=== PATIENT | female | born 1975 | race Caucasian/White ===

== ENCOUNTER 2023-07-12 10:02 | Outpatient (CLI) | payer OTHER, SELFPAY | END 2023-07-12 10:03 | disposition home or self-care (01) | PROVIDERS: PCP Family Medicine; Visit Provider Obstetrics & Gynecology | DX: E03.9 Hypothyroidism, unspecified (principal); Z13.220 Encounter for screening for lipoid disorders | CPT/HCPCS: 80061; 84443; 84450; 84460 ==

== ENCOUNTER 2024-03-30 15:00 | Outpatient (CLI) | payer OTHER, SELFPAY | END 2024-03-30 15:01 | disposition home or self-care (01) | LOC: NFLDREF 04-02 15:54 | PROVIDERS: PCP Family Medicine; Referring Provider Family Medicine; Visit Provider Obstetrics & Gynecology | DX: E03.9 Hypothyroidism, unspecified (principal) | CPT/HCPCS: 84443 ==

== ENCOUNTER 2024-06-21 10:01 | Outpatient (CLI) | payer OTHER, SELFPAY ==
--- NOTE | 2024-06-21 10:15 | CRLHL7_ITS ---
For Patients: As a result of the Century Cures Act, medical imaging exams and procedure reports are released immediately into your electronic medical record. You may view this report before your referring provider. If you have questions, please contact your health care provider. BILATERAL SCREENING MAMMOGRAM WITH COMPUTER-AIDED DETECTION AND TOMOSYNTHESIS TECHNIQUE: CC and MLO views were obtained. These mammographic images have been obtained using full-field digital technique. These mammographic images were interpreted with the benefit of computer-aided detection. Breast Tomosynthesis was used in this interpretation. COMPARISON FILM: 08/19/21, 04/24/20, 04/20/19. FINDINGS: The breasts are heterogeneously dense, which may obscure small masses. IMPRESSION: There is no radiographic evidence for malignancy. ASSESSMENT: BI-RADS Category 1: Negative RECOMMENDATION: Routine screening mammogram in 1 year. A lay language report of this examination will be provided to the patient. Bhupinder Warren M.D. Diagnostic Radiologist [email or web address] SP/Dictated by: Bhupinder Warren MD @ 06/21/2024 12:54:00 PM (Electronically Signed)
== END 2024-06-21 10:02 | disposition home or self-care (01) ==
LOC: MAMMO 10:03
PROVIDERS: PCP Family Medicine; Visit Provider Obstetrics & Gynecology
DX: Z12.31 Encounter for screening mammogram for malignant neoplasm of breast (principal); R92.333 Mammographic heterogeneous density, bilateral breasts
CPT/HCPCS: 77063; 77067

== ENCOUNTER 2024-07-14 10:04 | Outpatient (CLI) | payer OTHER, SELFPAY ==
[2024-07-16 01:51] LABS: HPV Source Cervix; HPV, High Risk by TMA Not Detected
== END 2024-07-14 10:05 | disposition home or self-care (01) ==
PROVIDERS: PCP Family Medicine; Visit Provider Obstetrics & Gynecology
DX: Z12.4 Encounter for screening for malignant neoplasm of cervix (principal)
CPT/HCPCS: 87624; 87625; 88141; 88142